=== PATIENT | male | born 1965 | race Caucasian/White ===

== ENCOUNTER 2019-01-06 19:47 | Emergency (ER) | payer MEDICARE ==
[~2019-01-06] VITALS: Ht 172.7 cm; Wt 95.7 kg
[~2019-01-06 19:47] MED LIST: ANDRODERM1 EACH TD; B-121000 MC2 PO; BUSPIRONE HCL10 MG PO; CETIRIZINE HCL10 MG PO; CODEINE SULFATE30 MG PO; DOXYCYCLINE HY100 M3 PO; KEFLEX500 MG PO; MIRTAZAPINE15 MG PO; MUCINEX600 MG PO; PREDNISONE20 MG PO; SERTRALINE HCL100 MG PO; SINGULAIR10 MG PO; THERAFLU MULTI1 EACH PO; VITAMIN D31000 UNI1 PO; WARFARIN SODIUM3 MG PO; WARFARIN SODIUM5 MG PO
--- NOTE | 2019-01-07 19:59 | EKG ---
[facility] [address] [facility] [place] [address] Signed Normal sinus rhythm Incomplete right bundle branch block Minimal voltage criteria for LVH, may be normal variant Borderline ECG No previous ECGs available Confirmed by JOE CRAVEN MD ([id number]) on 01/07/2019 7:59:43 PM Electronically Signed By: JOE CRAVEN MD 01/07/191958 PATIENT NAME: TYSON JIANG Electrocardiogram DATE OF : 67 PHYSICIAN: JOE CRAVEN MD REPORT #: [id number] REPORT IS CONFIDENTIAL AND NOT TO BE RELEASED WITHOUT AUTHORIZATION
== END 2019-01-06 21:24 | disposition home or self-care (01) ==
LOC: ED 19:47
DX: R07.89 Other chest pain (principal); J45.909 Unspecified asthma, uncomplicated; Z79.899 Other long term (current) drug therapy; Z79.01 Long term (current) use of anticoagulants
CPT/HCPCS: 71045; 80053; 84484; 85025; 85610; 85730; 93005; 93010; 99285-25

== ENCOUNTER 2019-02-14 01:44 | Emergency (ER) | payer MEDICARE ==
[~2019-02-14] VITALS: Ht 172.7 cm; Wt 96.6 kg
[2019-02-14] MEDS ORDERED: METOPROLOL TART25 MG PO (01:59)
[2019-02-14] MEDS ORDERED: XARELTO20 MG PO (01:59)
[2019-02-14] MEDS ORDERED: NITROGLYCERIN0.4 MG SL (01:59)
[2019-02-14] MEDS ORDERED: NORCO 5-325 TA1 EACH PO (05:55)
[2019-02-14] MEDS ORDERED: FLAGYL500 MG PO (05:55)
[2019-02-14] MEDS ORDERED: CIPRO500 MG PO (05:55)
== END 2019-02-14 06:16 | disposition home or self-care (01) ==
LOC: ED 01:44
DX: R10.11 Right upper quadrant pain (principal); J45.909 Unspecified asthma, uncomplicated; G56.20 Lesion of ulnar nerve, unspecified upper limb; F25.9 Schizoaffective disorder, unspecified; Z86.718 Personal history of other venous thrombosis and embolism; Z79.899 Other long term (current) drug therapy; Z79.01 Long term (current) use of anticoagulants
CPT/HCPCS: 74177; 76705; 80053; 81001; 83690; 85025; 85610; 85730; 99284-25; Q9967

== ENCOUNTER 2019-02-19 08:36 | Day surgery (SDC) | payer OTHER ==
[~2019-02-19] VITALS: Ht 172.7 cm; Wt 96.6 kg
[~2019-02-19 08:36] MED LIST changes: +CIPRO500 MG PO; +FLAGYL500 MG PO; +METOPROLOL TART25 MG PO; +NITROGLYCERIN0.4 MG SL; +NORCO 5-325 TA1 EACH PO; +XARELTO20 MG PO
[2019-02-19] MEDS ORDERED: XARELTO10 MG PO (08:58)
--- NOTE | 2019-02-19 12:07 | NUR ---
02/19/19 1207 Catia Mancilla 1159-PATIENT ARRIVED TO PACU ON 6L MASK SHALLOW BREATHES. NONAROUSABLE. 4 LAP SITES TO ABDOMEN FROM DIANNA AND UMBILICAL HERNIA INCISION. CDI. ICE APPLIED 1205-PATIENT OPENS EYES TO TACTILE STIMULI DOZES BACK TO SLEEP. IVF INFUSING.
--- NOTE | 2019-02-19 12:56 | NUR ---
ICED WATER, CRACKERS AND JELLO GIVEN. NO NON-VERBAL SIGNS OF PAIN NOTED. PATIENT KEEPS HIS EYES CLOSED WHILE TALKING TO ME. CALL LIGHT W/IN REACH. FAMILY NOTIFIED OF PATIENT'S RETURN TO HIS ROOM.
--- NOTE | 2019-02-19 13:03 | NUR ---
PATIENT EATS ALL JELLO AND CRACKERS AND ASKS FOR SOUP AND MORE CRACKERS. THIS IS GIVEN.
[2019-02-19] MEDS ORDERED: NORCO 5-325 TA1 EACH PO (13:21)
--- NOTE | 2019-02-19 13:55 | NUR ---
PATIENT RATES PAIN 8/10. NO NON VERBAL SIGNS OF PAIN NOTED. PATIENT EDUCATION COMPLETE WITH REGARD TO PAIN SCALE. PATIENT AFFIRMS 8/10 AND REPORTS 5/10 IS ACCEPTABLE TO HIM. PATIENT IS UP TO THE BATHROOM W/RN STANDBY. PATIENT STANDS AND AMBULATES TO THE BATHROOM WELL. FECAL INCONTINENCE ON BED LINEN IS NOTED. LINEN CHANGE COMPLETE. 2ND ATTEMPT MADE TO LOCATE PATIENT'S FAMILY. MORE ICED WATER IS GIVEN.
--- NOTE | 2019-02-19 14:18 | NUR ---
LE 1400: PATIENT AMBULATES BACK FROM BATHROOM, REPORTS SUCCESFUL VOID AND STATES "THE PRESSURE IS MUCH BETTER". PATIENT REQUESTS TO GO HOME. PATIENT GETTING DRESSED. PHONE CALL TO PATIENT'S SPOUSE'S CELL PHONE AND SHE REPORTS SHE WILL BE HERE IN 5 MINUTES. DC INSTRUCTIONS GIVEN IN PRESENCE OF SPOUSE AND BOTH SHE AND PATIENT VERBALIZE UNDERSTANDING. PATIENT TRANSFERS SELF TO WC AND THEN TO PERSONAL VEHICLE AND TOLERATES THOSE TRANSFERS WELL.
--- NOTE | 2019-02-20 06:26 | OR ---
[facility] [address], [place] [address] Signed DATE OF OPERATION: 02/19/2019 SURGEON: Wendy Vazquez MD DATE OF PROCEDURE: 02/19/2019 PREOPERATIVE DIAGNOSES: 1. Acute cholecystitis and cholelithiasis. 2. Incarcerated umbilical hernia. POSTOPERATIVE DIAGNOSES: 1. Chronic cholecystitis with cholelithiasis (three stones measuring 2 mm each). 2. Cholesterolosis. 3. Incarcerated umbilical hernia. 4. Fatty liver. PROCEDURES PERFORMED: 1. Laparoscopic cholecystectomy with intraoperative cholangiogram. 2. Primary umbilical herniorrhaphy without mesh. ESTIMATED BLOOD LOSS: None. FINDINGS: We found three yellow cholesterol stones in the gallbladder. Each was about 2 mm in diameter. He had moderate cholesterolosis. The intraoperative cholangiogram was unremarkable. He seemed to have some chronic changes of the gallbladder, but nothing acute. It is possible he passed a tiny stone causing his right upper quadrant abdominal pain in his ER visit. INDICATIONS: Conor is a 53-year-old gentleman, who had been to the emergency room on 02/14/2019. He was having significant right upper quadrant abdominal pain radiating through to his right shoulder blade. He was bloated, nauseated, and having trouble eating. He seemed to have some tenderness in the right upper quadrant. He also had a tender incarcerated umbilical hernia. His laboratory work was unremarkable. The right upper quadrant ultrasound was unremarkable. Specifically, no mention of any stones in the gallbladder. The common bile duct was unremarkable. As a result, the ER doctor ordered a CT scan of the abdomen and pelvis. Of course, they could see his incarcerated umbilical hernia Electronically Signed By: WENDY VAZQUEZ MD 02/20/19 0626 PATIENT NAME: CONOR JIANG OPERATIVE REPORT DATE OF : 67 REPORT #: [id number] PHYSICIAN: WENDY VAZQUEZ MD PCP: VAMSI MCDERMOTT MD REPORT IS CONFIDENTIAL AND NOT TO BE RELEASED WITHOUT AUTHORIZATION [facility] [address], [place] [address] Signed containing fat. The seemed to think there was a stone in the cystic duct on the CT scan. His bile ducts were unremarkable otherwise. He takes Xarelto for history of left lower extremity DVT. He would like to go home on Cipro, Flagyl and some hydrocodone. He stopped Xarelto and saw me in the office yesterday. He and his explained that he is having ongoing symptoms. I gave him a [employer] brochure on the gallbladder. We looked at that together in detail. I explained to Conor and his that the ultrasound is much more sensitive with respect to the stones than the CT scan. Nevertheless, because of his ongoing persistent symptoms, he wanted to proceed with surgery. I reviewed with him the location and function of the gallbladder. We discussed laparoscopic versus open cholecystectomy. He understands expected intraop and postop course. We did review the risks including, but not limited to bleeding, infection, scarring, change in contour of the skin, damage to bowel, damage to main bile duct, incisional hernias as well as inability to relieve his pain. In addition, he does have an incarcerated umbilical hernia on physical exam. It remains tender. He said he wonder why his umbilicus was so tender and poking out. I gave him a [employer] brochure on hernias and we looked at the section relevant to his umbilical hernia. In general, we would like to repair these with mesh. However, in this setting, we always close them primarily with permanent suture. The risk of recurrent hernia is a little higher around 3% up to 15%. Of course, if he had a recurrent umbilical hernia in the future, myself or any general surgeon would repair that with mesh. I also explained with respect to his umbilical hernia. There is risk including, but not limited to bleeding, infection, scarring, change in contour of the skin, damage to bowel as well as the recurrent hernia. He had expressed understanding and wished to proceed with the gallbladder surgery and repair of the umbilical hernia. PROCEDURE NOTE: I met with Conor and his once again in our preop area. Their friend was in the room with them. After answering his questions, he was taken into the operating room and placed in the supine position under general endotracheal tube anesthesia. He was given preoperative antibiotics along with subcutaneous heparin. SCDs were utilized. He was then prepped and draped in the usual sterile fashion. Even with pharmacologic paralysis, we could not reduce the herniated fat. We utilized a standard supraumbilical transverse incision and carried that down around the umbilicus bluntly and with the cautery. We the umbilical skin from the fascia with the help of the cautery. We were then able to reduce the fat back into the abdomen. He had a standard 10 mm fascial defect. We were able to easily place the Yessi trocar through this fascial defect. After this, the abdomen was insufflated and the remaining trocars were placed under direct visualization without difficulty. We could see that he has a fatty liver along with moderate amount of fat in his abdomen as many men do. The gallbladder was then grasped and elevated in the right upper quadrant. We could see the yellow spider web affect from the cholesterolosis. He had a lot of fat down around the neck of the gallbladder in the triangle of Calot. We did not specifically feel gallstone. We found that his cystic Electronically Signed By: WENDY VAZQUEZ MD 02/20/19 0626 PATIENT NAME: CONOR JIANG OPERATIVE REPORT DATE OF : 67 REPORT #: [id number] PHYSICIAN: WENDY VAZQUEZ MD PCP: VAMSI MCDERMOTT MD REPORT IS CONFIDENTIAL AND NOT TO BE RELEASED WITHOUT AUTHORIZATION [facility] [address], [place] [address] Signed artery ran anterior to the cystic duct and we placed 2 clips on that and divided that artery. We then placed our intraoperative cholangiocatheter into the cystic duct and again we saw no evidence of a stone. The intraoperative cholangiogram was then performed. Again, no evidence of stone in the cystic duct or the common bile duct. The contrast flowed quite readily into the duodenum. After this, the cystic duct stump was secured with a PDS Endoloop and 2 clips were placed across the cystic duct stump to uche its location. The gallbladder was then carefully removed from the gallbladder fossa with the help of the cautery and placed into an EndoCatch bag. We had one small artery posteriorly somewhat laterally on the edge of the liver bed and it was easily cauterized. The wound was irrigated and suctioned out until clear. We used our laparoscopic suturing device to pass 0 Vicryl suture on either side of the fascia of the subxiphoid trocar site. This was tied down to close this fascia primarily. After this, all the gas was allowed to escape and all the trocars were removed. The gallbladder was handed off to our circulating nurse and was opened on the back table. He had significant cholesterolosis and three small yellow cholesterol stones probably 2 mm in diameter. These clearly would not be evident on the CT scan. We then closed the umbilical fascial defect transversely with a running #1 Prolene suture. The umbilical skin was held down the midline fascia with an interrupted 2-0 PDS suture. Local anesthetic had been copiously injected in the wound along with the other trocar sites. Each trocar site was irrigated and suctioned out until clear. The skin and dermis of each trocar site were then closed with interrupted 3-0 subcuticular Monocryl sutures. Dry gauze and tape were then applied. Conor was then awakened from his anesthesia, extubated in the OR, and taken to recovery room in stable condition. Wendy Vazquez MD ALB/MODL /[id number] cc: Vamsi Mcdermott MD Copies: VAMSI MCDERMOTT MD ~ Electronically Signed By: WENDY VAZQUEZ MD 02/20/19 0626 PATIENT NAME: CONOR JIANG OPERATIVE REPORT DATE OF : 67 REPORT #: [id number] PHYSICIAN: WENDY VAZQUEZ MD PCP: VAMSI MCDERMOTT MD REPORT IS CONFIDENTIAL AND NOT TO BE RELEASED WITHOUT AUTHORIZATION
== END 2019-02-19 14:10 | disposition home or self-care (01) ==
LOC: DS 08:36
PROVIDERS: Colon & Rectal Surgery
PROC: 0FT44ZZ Resection of Gallbladder, Percutaneous Endoscopic Approach (ICD-10-PCS; principal; 2019-02-19 11:00)
PROC: BF13YZZ Fluoroscopy of Gallbladder and Bile Ducts using Other Contrast (ICD-10-PCS; 2019-02-19 11:00)
DX: K81.1 Chronic cholecystitis (principal); K42.0 Umbilical hernia with obstruction, without gangrene; K76.0 Fatty (change of) liver, not elsewhere classified; M19.90 Unspecified osteoarthritis, unspecified site; I10 Essential (primary) hypertension; I82.409 Acute embolism and thrombosis of unspecified deep veins of unspecified lower extremity; F17.220 Nicotine dependence, chewing tobacco, uncomplicated; Z79.2 Long term (current) use of antibiotics; Z91.040 Latex allergy status; Z79.899 Other long term (current) drug therapy
CPT/HCPCS: 00790; 74300; J0131; J0330; J0690; J1100; J1644; J1885; J2405; J2704; J3010; J7120; Q9967

== ENCOUNTER 2019-02-21 20:56 | Emergency (ER) | payer OTHER ==
[~2019-02-21] VITALS: Ht 172.7 cm; Wt 96.6 kg
[~2019-02-21 20:56] MED LIST changes: +XARELTO10 MG PO
--- OUTSIDE RECORDS SUMMARY | 2019-02-21 20:58 | XMS ---
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 Zoila has no Care Guidelines for this patient. [place] VISIT COUNT (12 MO.) 4 [facility] TOTAL 4 NOTE: Visits indicate total known visits. 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 - Lesion of ulnar nerve, unspecified upper limb - Personal history of other venous thrombosis and embolism 01/06/2019 19:47 [facility] TYPE: Emergency COMPLAINT: - CHEST PAIN DIAGNOSES: - Chest pain, unspecified - Other chest pain - 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
[2019-02-21] MEDS ORDERED: CEPHALEXIN500 MG PO (22:41)
== END 2019-02-21 22:52 | disposition home or self-care (01) ==
LOC: ED 20:56
DX: I80.01 Phlebitis and thrombophlebitis of superficial vessels of right lower extremity (principal); J45.909 Unspecified asthma, uncomplicated; G62.9 Polyneuropathy, unspecified; F25.9 Schizoaffective disorder, unspecified; Z79.899 Other long term (current) drug therapy; Z90.49 Acquired absence of other specified parts of digestive tract
CPT/HCPCS: 36415; 80053; 85025; 93971; 99284-25

== ENCOUNTER 2020-05-10 10:50 | Observation (INO) | payer MEDICARE ==
[~2020-05-10] VITALS: Ht 172.7 cm; Wt 97.1 kg
[~2020-05-10 10:50] MED LIST changes: +ACYCLOVIR400 MG PO; +CEPHALEXIN500 MG PO; +CIPRO HC OTIC S10 ML AD; +REVLIMID15 MG PO
--- OUTSIDE RECORDS SUMMARY | 2020-05-10 10:54 | XMS ---
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 Care History Medical/Surgical 02/24/2019 [facility] - Patient is currently established with [facility]. If patient is seen in the ED during business hours. Please contact CHWs at [facility]. Care Recommendation: This patient has had 5 or more Emergency Department visits in the last 12 months.\T\nbsp; Patient requires education on the scope and purpose of the ED as an acute care provider not a Primary Care Provider and should not be utilized for chronic conditions.\T\nbsp; These are guidelines and the provider should exercise clinical judgment when providing care. E.D. VISIT COUNT (12 MO.) 1 [facility] TOTAL 1 NOTE: Visits indicate total known visits. ED/UCC VISIT TRACKING (12 MO.) 05/10/2020 10:[address] [facility] [place] TYPE: Emergency COMPLAINT: - STROKE SYMPTOMS INPATIENT VISIT TRACKING (12 MO.) No inpatient visits to display in this time frame [email or web address]
--- NOTE | 2020-05-10 14:30 | NUR ---
PT ARRIVED TO FLOOR VIA STRETCHER. PT IS ALERT AND ORIENTED. INDEPENDENT TO TRANSFER TO BED. TELE 4 PLACED. VITALS TAKEN. IMAGING IN TO DO ECHO. WATER PROVIDED.
--- NOTE | 2020-05-10 15:21 | NUR ---
PHYSICAL THERAPY IN DOING ASSESSMENT.
--- NOTE | 2020-05-10 16:00 | NUR ---
NIH SCORE OF 2. PT WITH LEFT FACIAL DROOP, DISORIENTED TO DATE, SITUATION. SPEACH NORMAL. FOOD ORDERED. AT BEDSIDE. CALL LIGHT IN REACH.
--- NOTE | 2020-05-10 17:00 | NUR ---
PT SITTING IN BED. TELE 4 IN PALCE. HR 70 SR. PT DENIES PAIN. NO SYMPTOM CHANGES. CALL LIGHT IN REACH.
--- NOTE | 2020-05-10 18:01 | NUR ---
PT LYING IN BED. DENIES NEEDS. NO SYPMTOM CHANGES. CALL LIGHT IN REACH HR 64 SR.
--- NOTE | 2020-05-10 18:17 | NUR ---
MED REC COMPLETE
--- NOTE | 2020-05-10 18:24 | NUR ---
PATIENT RESTING IN BED. IN ROOM. VITAL SIGNS AND I&O DONE. CALL LIGHT WITHIN REACH. NO OTHER NEEDS AT THIS TIME
--- NOTE | 2020-05-10 19:20 | NUR ---
REPORT RECEIVED FROM DAY SHIFT RN. PT LYING IN BED ALERT. NO SLURRED OR GARBLED SPEECH NOTED. DENIES NEEDS. WHITE BOARD UPDATED. CALL LIGHT IN REACH.
--- NOTE | 2020-05-10 19:25 | NUR ---
PATIENT'S CAME TO NURSE'S STATION ASKED FOR ICE WATER AND WARM BLANKET. THIS CHAIN MENDER WENT AND PROVIDED THE REQUEST.
--- NOTE | 2020-05-10 20:40 | NUR ---
EVENING ASSESSMENT COMPLETE. SCHEDULED MEDS ADMINISTERED, NO SWALLOWING ISSUES NOTED. PT CONTINUES HAVING TROUBLE EXPRESSING HIMSELF. NEURO CHECK COMPLETE (SEE ASSESSMENT). PT DENIES PAIN OR HEADACHE. TELE#[address], SR. HR 60'S. IN ROOM TO STAY. LINENS AND PILLOW PROVIDED. PT DENIES QUESTIONS OR CONCERNS. CALL LIGHT IN REACH.
--- NOTE | 2020-05-10 23:33 | NUR ---
SPRITE PROVIDED PER REQUEST. URINAL EMPTIED OF 150 ML YELLOW URINE. PT DENIES FURTHER NEEDS.
--- NOTE | 2020-05-11 02:03 | NUR ---
VS AND I&O COMPLETE. NEURO CHECK COMPLETE (SEE ASSESSMENT), SYMPTOMS UNCHANGED. PT REPORTS HE IS RESTING COMFORTABLY. TELE #4, HR 70'S. IN ROOM. NO NEEDS. CALL LIGHT IN REACH.
--- NOTE | 2020-05-11 06:18 | NUR ---
NEURO CHECK COMPLETE. PT ABLE TO RESPOND MORE QUICKLY TO QUESTIONS THIS AM. ABLE TO READ BREAKFAST MENU AND ORDER. EXPRESSIVE APHASIA REMAINS BUT IMPROVED. TELE #4 SR. HR 60'S. PT DENIES PAIN. UP IN ROOM INDEPENDENTLY. GAIT STEADY. NO NEEDS. CALL LIGHT IN REACH.
--- NOTE | 2020-05-11 07:36 | NUR ---
REPORT RECIEVED. PT IN BED AWAKE. CALL LIGHT IN REACH. DENIES NEEDS.
--- NOTE | 2020-05-11 09:19 | NUR ---
ASSESSMNET COMPLETED. NEURO CHECK DONE. PT WITH EXPRESSIVE APHASIA AND LEFT FACIAL DROOP. ATE 100% OF BREAKFAST. DENEIS PAIN. OUT TO WORK WITH PHYSICAL THERAPY.
--- NOTE | 2020-05-11 10:03 | NUR ---
PATIENT IN BED WATCHING TV, AT BEDSIDE. FRESH WATER GIVEN. PATIENT IND, DID AM AND ORAL CARE. PATIENT REFUSED SHOWER. CALL LIGHT IN REACH. NO FURTHER NEEDS AT THIS TIME.
--- NOTE | 2020-05-11 11:52 | NUR ---
PT WITH DECREASED URIN OUTPUT. DR DAVISON NOTIFIED. VERBAL ORDER FOR 1L LR BOLUS TO INFUSE OVER 1 HOUR. LR HUNG. PT SITTING AT SIDE OF BED WITH LUNCH.
--- NOTE | 2020-05-11 14:35 | NUR ---
PATIENT IN BED WATCHING TV. AT BEDSIDE. CALL LIGHT IN REACH. NO FURTHER NEEDS AT THIS TIME.
--- NOTE | 2020-05-11 16:50 | NUR ---
ROUNDED WITH DR DAVISON PLAN OF CARE DISCUSSED.
[2020-05-11] MEDS ORDERED: LIPITOR40 MG PO (16:56)
--- NOTE | 2020-05-12 16:15 | EKG ---
[facility] [address] [facility] [place] [address] Signed Normal sinus rhythm Incomplete right bundle branch block Voltage criteria for left ventricular hypertrophy Abnormal ECG When compared with ECG of 06-JAN-2019 19:51, No significant change was found Confirmed by ELIANA DAVISON DO ([id number]) on 05/12/2020 4:15:23 PM Electronically Signed By: ELIANA DAVISON DO 05/12/20 1615 PATIENT NAME: TYSON JIANG NORBERTO Electrocardiogram DATE OF : 67 PHYSICIAN: ELIANA DAVISON DO REPORT #: [id number] REPORT IS CONFIDENTIAL AND NOT TO BE RELEASED WITHOUT AUTHORIZATION
== END 2020-05-11 17:20 | disposition home or self-care (01) ==
LOC: ED 10:50 → MS 10:51
PROVIDERS: ADMIT Internal Medicine
DX: I63.81 Other cerebral infarction due to occlusion or stenosis of small artery (principal); R47.01 Aphasia; C90.00 Multiple myeloma not having achieved remission; F41.8 Other specified anxiety disorders; Z86.718 Personal history of other venous thrombosis and embolism; Z79.899 Other long term (current) drug therapy
CPT/HCPCS: 70450; 70496; 70498; 70551; 71045; 80053; 80061; 83036; 84484; 85025; 85610; 85730; 92523; 93005; 93010; 93306; 96360; 97112; 97116; 97162; 97165; 99285-25; C9803; G0378; J7121; Q3014; Q9967; U0002

== ENCOUNTER 2020-08-26 10:12 | Day surgery (SDC) | payer OTHER ==
[~2020-08-26] VITALS: Ht 172.7 cm; Wt 95.2 kg
[~2020-08-26 10:12] MED LIST changes: +LIPITOR40 MG PO
--- NOTE | 2020-08-26 12:28 | NUR ---
08/26/20 Konstantin8 Elyse Reyes 1223- PT ARRIVES TO PACU AROUSABLE TO VOICE. PT FALLS INSTANTLY BACK TO SLEEP. RESP EVEN AND UNLABORED. OXYGEN SAT HIGH 90'S ON 3L VIA NC.
--- NOTE | 2020-09-01 12:29 | PATH ---
[facility] [address] [place], [place] [address] Signed THIS IS AN ADDENDUM REPORT SPECIMEN(S): A BONE MARROW - CORE SPECIMEN(S): B BONE MARROW - ASPIRATION SPECIMEN(S): C COMP AND PLASMA CELL FLOW, BM EDTA CLINICAL HISTORY: 55-year-old male with IgG [place] myeloma, s/p HDCT, auto MBT. Evaluate for MRD. C90.00 (multiple myeloma not having achieved remission) DIAGNOSIS SUMMARY: A. Peripheral blood - Mild pancytopenia. B. Bone marrow, left side, aspirate smear, aspirate cell block, and trephine biopsy: - Minute population of kappa monotypic plasma cells is detected by flow cytometry analysis (0.04% kappa monotypic plasma cells). - Normocellular marrow with active trilineage hematopoiesis. - Negative for morphologic features of myelodysplasia. - See Diagnostic Comment. DIAGNOSTIC COMMENT: There is minimal residual plasma cell myeloma as detected solely by sensitive multiparameter flow cytometry analysis (0.04% kappa monotypic plasma cells detected). By immunohistochemistry, less than 1% plasma cells is observed. Please correlate with clinical findings for full assessment. Karyotype analysis, myeloma and MDS panel FISH analyses, and plasma cell enriched PCR analysis for B-cell gene arrangement for minimal residual disease monitoring are being performed and the results will be reported by addendum. TTP:smn:C2NR PERIPHERAL BLOOD: HEMOGRAM (08/26/2020): WBC 3.0 K/uL, RBC 3.23 M/uL, HGB 10.6 g/dL, HCT 30.5%, MCV 94.5 fL, RDW 16.9%, PLT 100 K/uL. DIFFERENTIAL (automated): 69.7% neutrophils, 17.4% lymphocytes, 6.6% monocytes, 5.6% eosinophils, and 0.7% basophils. The red cells are mildly decreased in number and are normochromic and normocytic. Anisocytosis and poikilocytosis are increased with ovalocytes and teardrop cells. Polychromasia is absent. Red PATIENT NAME: TYSON HOLLEY PATHOLOGY DATE OF : 67 REPORT #: [id number] PHYSICIAN: RAJWINDER MURPHY PCP: VAMSI MCDERMOTT MD REPORT IS CONFIDENTIAL AND NOT TO BE RELEASED WITHOUT AUTHORIZATION [facility] [address] [place], [place] [address] Signed blood cell rouleaux are not prominent. Leukocytes are mildly decreased in number and consist predominantly of mature neutrophils with normal morphology. Overt dysplastic changes are not seen. Circulating blasts and immature granulocytes are absent. There is no monocytosis, basophilia, or eosinophilia. Lymphocytes are reduced and show normal morphology. Platelets are mildly decreased in number and show normal morphology. BONE MARROW: BONE MARROW ASPIRATE SMEARS: The bone marrow aspirate smears have adequate cellular particles with normal proportions of myeloid and erythroid forms, which mature in a complete and house player fashion without overtly dysplastic features. Blasts are not increased. No atypical lymphoid population is seen. Plasma cells are rare and show normal morphology. Megakaryocytes are normal in number and appearance. A 200-cell differential count yields: 8% myelocytes, 23% metamyelocytes, 23% neutrophils, 6% lymphocytes, and 40% erythroid precursors. BONE MARROW CLOT (ASPIRATE CELL BLOCK) AND TREPHINE BIOPSY: A 1.4 cm decalcified trephine biopsy is available for review, showing a normocellular marrow for age (40-50% cellular). Granulopoietic and erythroid maturations are present with an M:E ratio of 1:1. No increase in plasma cells is appreciated. Megakaryocytes are normal in number and appearance. No aggregates of immature cells, lymphoid nodules, granulomas, or other focal lesions are identified. Trabecular bone is normal. The clot section contains many cellular marrow particles with similar findings. SPECIAL STAINS: - Iron (aspirate smear and clot section): Adequate stainable iron store. Negative for ringed sideroblasts. Appropriate positive control is reviewed. IMMUNOHISTOCHEMISTRY, BLOCKS A1 AND B1: - CD138: Rare scattered plasma cells are positive (less than 1%). IN SITU HYBRIDIZATION, BLOCKS A1 AND B1: - [place]: Rare scattered plasma cells are positive. - Lambda: No positive plasma cells are seen. No definite monotypic plasma cell population is discernible by in situ hybridization. TTP:smn FLOW CYTOMETRY: Bone marrow aspirate, flow cytometry: PATIENT NAME: TYSON HOLLEY PATHOLOGY DATE OF : 67 REPORT #: [id number] PHYSICIAN: RAJWINDER PATHOLOGY PCP: VAMSI MCDERMOTT MD REPORT IS CONFIDENTIAL AND NOT TO BE RELEASED WITHOUT AUTHORIZATION [address] [address] Signed - [place] monotypic plasma cells are detected. See Comment. COMMENT: About 0.04% of total events are kappa monotypic plasma cells with aberrant CD56 expression. A similar amount of polytypic plasma cells is also detected. Correlation with clinical and histologic findings is needed for further characterization of this patient's plasma cell dyscrasia. Flow cytometry analysis often underestimates the amount of plasma cells. FLOW CYTOMETRY ANALYSIS: FLOW DIFFERENTIAL (% Total CD45 vs. SSC gating): Myeloid 87%; Lymphoid 2%; Monocyte 2%; Dim CD45/Blast: 1.2%. Cell Count: 4.8 x 10*3/uL. POPULATION ANALYSIS: BLASTS: Analysis of the dim CD45 gate demonstrates less than 1% myeloblasts by CD34/CD117. 3.7% of total events are hematogones. LYMPHOID CELLS: The lymphocyte gate comprises 2% of total events and includes 83% T-cells with a CD4:CD8 ratio of 0.5:1 and normal higgins T-cell antigen expression. B-cells are essentially absent. The remainders are NK-cells. MYELOID CELLS: The myeloid population comprises 87% of the total events. No aberrant immunophenotypic expression is detected. MONOCYTES: The monocyte population comprises 2% of the total events. Monocytes are not increased. Some increased expression of CD15 and CD56 are observed. PLASMA CELLS: A history of myeloma is noted. For this reason, select additional antibodies are run to further characterize the plasma cells. Two distinct plasma cell populations are detected. The first, 1) is comprised of ckappa-restricted plasma cells (0.04% of total events, n=32) expressing CD45 DIM-NEG, CD38 BR, CD138 BR, CD56 MOD-BR, and cKAPPA MOD while negative for CD19 and CD20. The second, 2) is comprised of polyclonal plasma cells expressing CD45 DIM-NEG, CD38 BR, CD138 MOD-BR, and CD19 DIM-MOD while negative for CD20 and CD56 with a ckappa:clambda ratio of 1.2. ANTIBODIES USED: Initial Antibodies Used: KAPPA, LAMBDA, CD20, CD10, CD19, CD23, CD38, FMC7, CD16, CD56, CD8, CD5, CD2, CD4, CD7, CD3, CD14, CD33, CD13, HLADR, CD34, CD117, CD15, CD45 Additional Antibodies (necessary for further plasma cell analysis): ckappa, clambda, CD138. Total Antibodies Used: 27. JNB FINAL DIAGNOSIS PERFORMED BY: Sanjuanita Garcia MD, Pathologist Aug 27 2020 5:01PM PATIENT NAME: TYSON HOLLEY PATHOLOGY DATE OF : 67 REPORT #: [id number] PHYSICIAN: RAJWINDER MURPHY PCP: VAMSI MCDERMOTT MD REPORT IS CONFIDENTIAL AND NOT TO BE RELEASED WITHOUT AUTHORIZATION [facility] [address] [place], [place] [address] Signed CYTOGENETICS: Pending, to be reported by addendum. FISH ANALYSIS: Pending, to be reported by addendum. MOLECULAR / PCR: Pending, to be reported by addendum. GROSS DESCRIPTION: Two specimens are received in two containers, labeled "Holley". A. The specimen, labeled "Kishan, core," is received in formalin and consists of a single red-brown bony core up to 1.2 cm. The specimen is entirely submitted in block (A1) following decalcification in Immunocal. B. The specimen, labeled "Kishan, clot," is received in formalin and consists of a 1.3 x 1.2 x 0.4 cm aggregate of red-brown, clotted material. The specimen is entirely submitted in block (B1). JW (under the direct supervision of a pathologist) The Gross Description was prepared using a voice recognition system. The report was reviewed for accuracy; however, sound-alike word errors, addition and/or deletions may occur. If there is any question about this report, please contact Client Services. ADDITIONAL NOTES: Immunohistochemical and/or in situ hybridization studies were performed on this case with the appropriate positive controls that react as expected. This test was developed and its performance characteristics determined by [facility]. It has not been cleared or approved by the U.S. Food and Drug Administration. The FDA has determined that such clearance or approval is not necessary. This test is used for clinical purposes. It should not be regarded as investigational or for research. [facility] is certified under the Clinical Laboratory Improvement Amendments of 1988 (CLIA) as qualified to perform high complexity clinical laboratory testing. In this case, certain antibodies were performed by both immunohistochemistry and flow cytometry analysis because flow cytometry analysis did not fully explain all the light microscopic findings. Immunohistochemistry aided in the analysis. Both methods are deemed medically necessary in this case. PATIENT NAME: TYSON HOLLEY PATHOLOGY DATE OF : 67 REPORT #: [id number] PHYSICIAN: RAJWINDER MURPHY PCP: VAMSI MCDERMOTT MD REPORT IS CONFIDENTIAL AND NOT TO BE RELEASED WITHOUT AUTHORIZATION [address] [address] Signed This test was developed and its performance characteristics determined by [facility]. It has not been cleared or approved by the US Food and Drug Administration. The FDA does not require this test to go through premarket FDA review. This test is used for clinical purposes. It should not be regarded as investigational or for research. This laboratory is certified under the Clinical Laboratory Improvement Amendments (CLIA) as qualified to perform high complexity clinical laboratory testing. PERFORMING LABORATORY: The technical component was performed by [facility], [address] [place] [address] (Clin Application Specialist: Anthony Rao D.O.; CLIA#: [id number]). Professional interpretation was performed by [facility], [facility], [address] [place] [address] (Clin Application Specialist: Hayes Garcia M.D.; CLIA#: [id number]). The technical component was performed by [facility], [address] [place] [address] (Clin Application Specialist: Anthony Rao D.O.; CLIA#: [id number]). Professional interpretation was performed by [facility], [facility], [address] [place] [address] (Clin Application Specialist: Hayes Garcia M.D.; CLIA#: [id number]). IMAGES: A: [id number] A: [id number] SPECIMEN SOURCE: A. FISH Analysis, MDS FISH, BM EDTA CLINICAL HISTORY: 55-year-old male with IgG [place] myeloma, s/p HDCT, auto MBT. Evaluate for MRD. C90.00 (multiple myeloma not having achieved remission) FISH (fluorescence in situ hybridization) RESULT: Not Detected INTERPRETATION: 5q deletion/monosomy 5: Not detected. 7q deletion/monosomy 7: Not detected. Trisomy 8: Not detected. 20q deletion: Not detected. KMT2A (MLL) rearrangement: Not detected. PATIENT NAME: TYSON HOLLEY PATHOLOGY DATE OF : 67 REPORT #: [id number] PHYSICIAN: RAJWINDER PATHOLOGY PCP: VAMSI MCDERMOTT MD REPORT IS CONFIDENTIAL AND NOT TO BE RELEASED WITHOUT AUTHORIZATION [facility] [address] [place], [place] [address], [place] [address] Signed Fluorescence in situ hybridization (FISH) analysis was performed using a specific set of probes for myelodysplastic syndrome. Counts for all probe signals were within the normal reference range. This finding represents a NORMAL result. FISH should be interpreted within the context of a full cytogenetic analysis and hematologic evaluation. ISCN: Probe Set Detail: EGR1/H6B109: nuc sowmya 5p15.31(B7Y029x4), 5q31(EGR1x2)[200] H7Q329/CEP7: nuc sowmya 7q31(O3Q076j8),7q11.2q11.21(CEP7x2)[200] CEP8: nuc sowmya 8q11.1q11.21(CEP8x2)[200] D33B869: nuc sowmya 20q12(E20L049r3)[200] KMT2A (MLL): nuc sowmya 11q23(5'KMT2A,3'KMT2A)x2(5'KMT2A con 3'GTQ1Of6)[200] References: Melissa Douglas (2013) Hematology Am Soc Hematol Educ Program 2013:504-10. PMID [id number] Patricia Carmona and Farhan Vargas (2011) Hematology 16(3):131-8. PMID: 90346239 FISH Analysis Summary: Nuclei Scored: 200 Scoring Method: Manual; CPT Code 13419 Number of Probe units: 4 Multiplex Cells analyzed: Interphase Probe sets: Chrom 8: PARISH 8, Chrom 20: F77T556, Chrom 5: EGR1, Chrom 5: G5V591, Chrom 7: CEN7, Chrom 7: M2H4877, Chrom 11: KMT2A (MLL) 3', Chrom 11: KMT2A (MLL) 5 ADDITIONAL NOTES: This test was developed and its performance characteristics determined by [facility], [place]. It has not been cleared or approved by the US Food and Drug Administration. The [employer] DNA probe vendor for this study was [employer]. PERFORMING LABORATORY: The technical component of the FISH testing was performed by [facility], [address] [place] [address] [place] [address] (Clin Application Specialist: Anthony Rao D.O.; CLIA#: [id number]). Professional interpretation was performed by [facility] [employer] [facility], [address] [place] [address] [place] [address] (Clin Application Specialist: Anthony Rao D.O.; CLIA#: [id number]). IMAGES: FINAL DIAGNOSIS PERFORMED BY: Sanjuanita Garcia MD, Pathologist Aug 31 2020 6:02PM PATIENT NAME: TYSON HOLLEY PATHOLOGY DATE OF : 67 REPORT #: [id number] PHYSICIAN: RAJWINDER PATHOLOGY PCP: VAMSI MCDERMOTT MD REPORT IS CONFIDENTIAL AND NOT TO BE RELEASED WITHOUT AUTHORIZATION [address] [address] Signed Bone marrow aspirate, FISH (fluorescence in situ hybridization) Result: Normal Plasma Cell Neoplasm panel Interpretation: - There is no evidence of an abnormal cell clone containing any of the aberrations associated with plasma cell neoplasia in the CD138 enriched cell fraction of this specimen at the sensitivity level of this analysis. - Clinical and hematopathology correlation is required. CD138+ plasma cells were isolated by magnetic-activated cell sorting using anti-CD138 immunobeads and a magnetic-activated cell sorter (IntraStage) separation system. Interphase FISH (fluorescence in situ hybridization) was performed to assess this specimen for the presence of cytogenetic aberrations in the non-dividing cell population. Hybridization was performed using the CDKN2C/CKS1B (1p32.3, 1q21), I83G901 (13q14.2), and TP53/D17Z1 (17p13) gene probes to look for deletion/loss of these regions or chromosomes. The D3Z1 and D15Z4 centromere probes were used to determine gains of chromosomes 3 and 15. The 13q34 probe was run as the control for C53V781 and to distinguish between deletion 13q and monosomy 13. FISH was also performed using the IGH/CCND1 and the IGH/FGFR3 probe sets, to look for t(11;14) and t(4;14) rearrangements, respectively, or alternate IGH gene rearrangements. A total of 200 CD138+ interphase cells were analyzed for each probe; the analyses fell within normal limits for this specimen type. 08/31/20 14:25 Please note, that aberrations in different cell populations (including CD138- plasma cell populations) cannot be ruled-out with this analysis. FISH Analysis Summary: Number of Cells Analyzed: 200; Cells Analyzed: Interphase Probes Utilized: CDKN2C,CKS1B, D3Z1+D15Z4, FGFR3/IGH, CCND1/IGH, L53W258,13q34, TP53-P Source and Lot Number: [employer], [id number], [id number], [id number], [id number], [id number], [id number] Control Probe Utilized: database The technical and professional components of the FISH study were performed at [facility] ([place], [place], case #[id number]). Detailed report is kept on file. Bone marrow aspirate, B-Cell Gene Rearrangement PCR Analysis (IGH): NEGATIVE Analysis/Conclusions: CD138+ plasma cells were isolated by magnetic-activated cell sorting using anti-CD138 immunobeads and a magnetic-activated cell sorter (IntraStage). Polyclonal PATIENT NAME: TYSON HOLLEY PATHOLOGY DATE OF : 67 REPORT #: [id number] PHYSICIAN: RAJWINDER PATHOLOGY PCP: VAMSI MCDERMOTT MD REPORT IS CONFIDENTIAL AND NOT TO BE RELEASED WITHOUT AUTHORIZATION [facility] [address] [place], [place] [address] Signed amplicon distribution was detected for all three immunoglobulin heavy-chain (IgH) framework regions (FR). - These results indicate the absence of a monoclonal plasma cell population by IGH gene rearrangement. - Clinical and histologic correlation would be required for the diagnosis. The Immunoglobulin Heavy Chain (IgH) gene rearrangement analysis detects approximately 85 90 % of B-cell malignancies, however, false-negative results can be caused by improper annealing of the PCR primers due to somatic hypermutations in rearranged Ig genes of germinal center and post germinal center B-cell malignancies. - Please note Clonality in different cell populations (including CD138- plasma cell populations) cannot be ruled-out with this analysis Method: Each B-cell has a single productive immunoglobulin gene rearrangement respectively that is unique in both length and sequence. Polymerase chain reaction (PCR) assays with specific primers for the joining region and all three of the conserved framework regions (FR1, FR2 and FR3) were used to amplify immunoglobulin heavy chain (IGH) gene rearrangements according to the BIOMED-2 Concerted Action protocol [van Dongen et al. Leukemia, 17:7210-6762, 2003]. DNA from a normal or polyclonal B cell population produces a villafana-shaped curve of amplicon products (Gaussian distribution). Clonal rearrangements are identified as prominent, single-sized products by capillary electrophoresis and GeneScanning. Although molecular testing is highly accurate, rarely false-positive and false-negative diagnostic errors may occur. DW/MRL/MELISSA The technical and professional components of the molecular analysis were performed at [facility]. ([place], [place], case #[id number]). Detailed report is kept on file. Bone marrow aspirate, B-Cell Gene Rearrangement PCR Analysis (IGK): NEGATIVE Analysis/Conclusions: CD138+ plasma cells were isolated by magnetic-activated cell sorting using anti-CD138 immunobeads and a magnetic-activated cell sorter (IntraStage) separation system. Polyclonal amplicon distribution has been detected for the immunoglobulin kappa light chain locus. - These results do not reveal the presence of a monoclonal plasma cell population. - The presence of a small clonal B-cell population below the level of detection for this analysis cannot be ruled out (approximately 1-10% dependent PATIENT NAME: TYSON HOLLEY PATHOLOGY DATE OF : 67 REPORT #: [id number] PHYSICIAN: RAJWINDER MURPHY PCP: VAMSI MCDERMOTT MD REPORT IS CONFIDENTIAL AND NOT TO BE RELEASED WITHOUT AUTHORIZATION [address] [address] Signed upon the polyclonal background of the individual gene rearrangement). - In addition, false-negative results caused by improper annealing of the PCR primers cannot be completely ruled out. - Clinical and histological correlation required for definitive diagnosis. - Please note: Clonality in different cell populations (including CD138- plasma cell populations) cannot be ruled-out with this analysis Method: Each B-cell has a single productive immunoglobulin gene rearrangement respectively that is unique in both length and sequence. Polymerase chain reaction (PCR) was used to amplify immunoglobulin light chain kappa (IgK) gene rearrangements according to the BIOMED-2 Concerted Action protocol [van Dongen et al. Leukemia, 17:0858-7954, 2003]. DNA from a normal or polyclonal B cell population produces a villafana-shaped curve of amplicon products (Gaussian distribution). Clonal rearrangements are identified as prominent, single-sized products by capillary electrophoresis and GeneScanning. Although molecular testing is highly accurate, rarely false-positive and false-negative diagnostic errors may occur.. BALWINDER/MRL/MELISSA The technical and professional components of the molecular analysis were performed at [facility] ([place], [place], case #[id number]). Detailed report is kept on file. REASON FOR ADDENDUM: To add results of additional testing. Diagnostician: Sanjuanita Garcia MD Pathologist Electronically Signed 09/01/2020 Copies: ~ PATIENT NAME: TYSON HOLLEY PATHOLOGY DATE OF : 67 REPORT #: [id number] PHYSICIAN: RAJWINDER PATHOLOGY PCP: VAMSI MCDERMOTT MD REPORT IS CONFIDENTIAL AND NOT TO BE RELEASED WITHOUT AUTHORIZATION
== END 2020-08-26 13:15 | disposition home or self-care (01) ==
LOC: DS 10:12 → OPS 10:12
PROVIDERS: ATTEND Specialist
PROC: 079T3ZX Drainage of Bone Marrow, Percutaneous Approach, Diagnostic (ICD-10-PCS; 2020-08-26)
PROC: 07DR3ZX Extraction of Iliac Bone Marrow, Percutaneous Approach, Diagnostic (ICD-10-PCS; principal; 2020-08-26 12:00)
DX: C90.00 Multiple myeloma not having achieved remission (principal); I63.511 Cerebral infarction due to unspecified occlusion or stenosis of right middle cerebral artery; D61.818 Other pancytopenia; J45.909 Unspecified asthma, uncomplicated; F41.9 Anxiety disorder, unspecified; E66.9 Obesity, unspecified; Z79.899 Other long term (current) drug therapy; Z79.01 Long term (current) use of anticoagulants; Z86.711 Personal history of pulmonary embolism
CPT/HCPCS: 36415; 80053; 80500; 82784; 83615; 83883; 84155; 84165; 85025; 99153; G0500; J2250; J3010

== ENCOUNTER 2022-03-06 04:05 | Emergency (ER) | payer MEDICARE ==
[~2022-03-06] VITALS: Ht 172.7 cm; Wt 93.0 kg
[2022-03-06] MEDS ORDERED: LEVOFLOXACIN750 MG PO (05:25)
== END 2022-03-06 05:40 | disposition home or self-care (01) ==
LOC: ED 04:05
DX: J18.9 Pneumonia, unspecified organism (principal); Z92.21 Personal history of antineoplastic chemotherapy; Z86.718 Personal history of other venous thrombosis and embolism; J45.909 Unspecified asthma, uncomplicated; M19.90 Unspecified osteoarthritis, unspecified site; G47.00 Insomnia, unspecified; Z79.899 Other long term (current) drug therapy; Z79.01 Long term (current) use of anticoagulants; Z20.822 Contact with and (suspected) exposure to COVID-19
CPT/HCPCS: 36415; 71046; 85025; 85060; 99283-25; U0003

== ENCOUNTER 2022-05-07 10:22 | Emergency (ER) | payer MEDICARE ==
[~2022-05-07] VITALS: Ht 172.7 cm; Wt 94.3 kg
[~2022-05-07 10:22] MED LIST changes: +ALLERCLEAR10 MG PO; +BENADRYL ALLERG25 MG PO; +DIPHENOXYLATE-1 EACH PO; +FOLIC ACID1 MG PO; +K-TAB ER20 MEQ PO; +LEVOFLOXACIN750 MG PO; +MEPRON750 MG/5 M PO; +ONDANSETRON ODT8 MG PO; +PROCHLORPERAZIN10 MG PO; +PROVENTIL HFA6.7 GM INH; +URSO FORTE500 MG PO
== END 2022-05-07 12:38 | disposition home or self-care (01) ==
LOC: ED 10:22
DX: I82.611 Acute embolism and thrombosis of superficial veins of right upper extremity (principal); J45.909 Unspecified asthma, uncomplicated; M19.90 Unspecified osteoarthritis, unspecified site; G47.00 Insomnia, unspecified; Z79.899 Other long term (current) drug therapy
CPT/HCPCS: 36415; 80053; 85025; 85610; 85730; 93971; 99284-25

== ENCOUNTER 2022-07-28 14:24 | Observation (INO) | payer OTHER, MEDICARE ==
[~2022-07-28] VITALS: Ht 172.7 cm; Wt 98.5 kg
[2022-07-28] MEDS ORDERED: GNP ANTACID-AN1 EACH PO (15:10)
[2022-07-28] MEDS ORDERED: VITAMIN D325 MCG PO (15:10)
[2022-07-28] MEDS ORDERED: CLARITIN10 M2 PO (15:11)
[2022-07-28] MEDS ORDERED: K-TAB ER20 MEQ PO (15:12)
[2022-07-29] MEDS ORDERED: LO-DOSE ASPIRIN81 MG PO (13:12)
[2022-07-29] MEDS ORDERED: AMLODIPINE BES2.5 MG PO (13:13)
[2022-07-29] MEDS ORDERED: ATORVASTATIN CA10 MG PO (13:13)
--- NOTE | 2022-07-29 17:36 | EKG ---
[facility] [address] [facility] [place] [address] Signed Normal sinus rhythm Minimal voltage criteria for LVH, may be normal variant ( R in aVL ) Borderline ECG When compared with ECG of 10-MAY-2020 11:27, No significant change was found Confirmed by JOE CRAVEN MD ([id number]) on 07/29/2022 5:36:18 PM Electronically Signed By: JOE CRAVEN MD 07/29/22 1736 PATIENT NAME: TYSON JIANG Electrocardiogram DATE OF : 67 PHYSICIAN: JOE CRAVEN MD REPORT #: [id number] REPORT IS CONFIDENTIAL AND NOT TO BE RELEASED WITHOUT AUTHORIZATION
== END 2022-07-29 14:20 | disposition home or self-care (01) ==
LOC: ED 14:24 → MS 16:26
PROVIDERS: ADMIT Internal Medicine; ATTEND Internal Medicine
DX: I63.9 Cerebral infarction, unspecified (principal); I10 Essential (primary) hypertension; E78.2 Mixed hyperlipidemia; R73.03 Prediabetes; C90.01 Multiple myeloma in remission; Z86.718 Personal history of other venous thrombosis and embolism; J45.909 Unspecified asthma, uncomplicated; F41.9 Anxiety disorder, unspecified; R47.1 Dysarthria and anarthria; Z79.01 Long term (current) use of anticoagulants; R47.81 Slurred speech; F32.9 Major depressive disorder, single episode, unspecified; Z20.822 Contact with and (suspected) exposure to COVID-19
CPT/HCPCS: 36415; 70450; 70496; 70498; 71045; 80053; 80061; 83036; 84484; 85025; 85610; 85730; 87502; 93005; 93010; A9270; C9803; Q9967; U0003

== ENCOUNTER 2022-11-13 21:10 | Emergency (ER) | payer OTHER ==
[~2022-11-13] VITALS: Ht 172.7 cm; Wt 96.0 kg
[~2022-11-13 21:10] MED LIST changes: +AMLODIPINE BES2.5 MG PO; +ATORVASTATIN CA10 MG PO; +CLARITIN10 M2 PO; +GNP ANTACID-AN1 EACH PO; +LO-DOSE ASPIRIN81 MG PO; +VITAMIN D325 MCG PO
[2022-11-14] MEDS ORDERED: VALACYCLOVIR1000 MG PO (00:29)
== END 2022-11-14 00:45 | disposition home or self-care (01) ==
LOC: ED 21:10
DX: B02.9 Zoster without complications (principal); Z86.718 Personal history of other venous thrombosis and embolism; J45.909 Unspecified asthma, uncomplicated; Z79.82 Long term (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; Z79.899 Other long term (current) drug therapy
CPT/HCPCS: 36415; 80053; 85025; 85379; 99283

== ENCOUNTER 2022-11-26 17:17 | Emergency (ER) | payer OTHER, MEDICARE ==
[~2022-11-26] VITALS: Ht 172.7 cm; Wt 95.7 kg
[~2022-11-26 17:17] MED LIST changes: +VALACYCLOVIR1000 MG PO
--- OUTSIDE RECORDS SUMMARY | 2022-11-26 17:24 | XMS ---
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 Care History Medical/Surgical 05/11/2020 [facility] \T\middot;\T\nbsp; PATIENT IS A -RECEIVES SERVICES THROUGH [facility] IN [place]. \T\middot;\T\nbsp; Location: [address], [place] [address]- E.D. VISIT COUNT (12 MO.) 5 [facility] TOTAL 5 NOTE: Visits indicate total known visits. ED/UCC VISIT TRACKING (12 MO.) 11/26/2022 17:17 [facility] TYPE: Emergency COMPLAINT: - COLD SYMPTOMS 11/13/2022 21:11 [facility] TYPE: Emergency COMPLAINT: - SKIN PROBLEM DIAGNOSES: - Unspecified asthma, uncomplicated - Localized edema - Other fdc (current) drug therapy - detention (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 - Personal history of other venous thrombosis and embolism - Zoster without complications 07/28/2022 14:25 [facility] TYPE: Emergency COMPLAINT: - POSS STROKE 05/07/2022 10:23 [facility] TYPE: Emergency COMPLAINT: - RT ARM PAIN DIAGNOSES: - Unspecified osteoarthritis, unspecified site - Other medical terminologist (current) drug therapy - Unspecified asthma, uncomplicated - Acute embolism and thrombosis of superficial veins of right upper extremity - Insomnia, unspecified - Pain in right arm 03/06/2022 04:06 [facility] TYPE: Emergency COMPLAINT: - COLD SYMPTOMS DIAGNOSES: - Insomnia, unspecified - Other medical terminologist (current) drug therapy - detention (current) use of anticoagulants - Personal history of other venous thrombosis and embolism - Unspecified asthma, uncomplicated - Contact with and (suspected) exposure to COVID-19 - Personal history of antineoplastic chemotherapy - Cough, unspecified - Unspecified osteoarthritis, unspecified site - Pneumonia, unspecified organism INPATIENT VISIT TRACKING (12 MO.) 07/28/2022 16:[address] [facility] [place] TYPE: Observation COMPLAINT: - TIA VS STROKE DIAGNOSES: - Prediabetes - Essential (primary) hypertension - Contact with and (suspected) exposure to COVID-19 - Multiple myeloma in remission - Anxiety disorder, unspecified - Slurred speech - detention (current) use of anticoagulants - Unspecified asthma, uncomplicated - Mixed hyperlipidemia - Dysarthria and anarthria - Major depressive disorder, single episode, unspecified - Personal history of other venous thrombosis and embolism - Cerebral infarction, unspecified [email or web address]
[2022-11-26] MEDS ORDERED: DOXYCYCLINE HY100 MG PO (17:40)
[2022-11-26] MEDS ORDERED: PREDNISONE20 MG PO (17:40)
== END 2022-11-26 18:28 | disposition home or self-care (01) ==
LOC: ED 17:17
DX: J42 Unspecified chronic bronchitis (principal); J45.909 Unspecified asthma, uncomplicated; M19.90 Unspecified osteoarthritis, unspecified site; G47.00 Insomnia, unspecified; Z79.899 Other long term (current) drug therapy; Z79.82 Long term (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; Z20.822 Contact with and (suspected) exposure to COVID-19
CPT/HCPCS: 87502; 94664; 99283; C9803; U0003

== ENCOUNTER 2023-09-28 02:18 | Emergency (ER) | payer OTHER ==
[~2023-09-28] VITALS: Ht 172.7 cm; Wt 98.0 kg
[~2023-09-28 02:18] MED LIST changes: +DOXYCYCLINE HY100 MG PO
[2023-09-28] MEDS ORDERED: PERCOCET 5-3251 EACH PO (03:20)
[2023-09-28 03:42] VITALS: BP 161/104
== END 2023-09-28 03:42 | disposition home or self-care (01) ==
LOC: ED 02:18
DX: S39.012A Strain of muscle, fascia and tendon of lower back, initial encounter (principal); M89.9 Disorder of bone, unspecified; C90.00 Multiple myeloma not having achieved remission; X50.0XXA Overexertion from strenuous movement or load, initial encounter; Z79.82 Long term (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; Z79.899 Other long term (current) drug therapy
CPT/HCPCS: 72100; 96372; 99283-25; J2270

== ENCOUNTER 2023-10-18 15:45 | Emergency (ER) | payer OTHER, MEDICARE ==
[~2023-10-18] VITALS: Ht 172.7 cm; Wt 101.7 kg
[~2023-10-18 15:45] MED LIST changes: +PERCOCET 5-3251 EACH PO
--- OUTSIDE RECORDS SUMMARY | 2023-10-18 15:46 | XMS ---
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 - 2 Visits in 30 Days CARE PROVIDERS VAMSI MCDERMOTT [facility] 05/11/2020-Current PHONE: Unknown THOMAS GUTIERREZ Nurse Practitioner: Family 02/24/2019-Current PHONE: Unknown Zoila has no Care Guidelines for this patient. Care History Medical/Surgical 05/11/2020 [facility] \T\middot;\T\nbsp; PATIENT IS A -RECEIVES SERVICES THROUGH [facility] IN [place]. \T\middot;\T\nbsp; Location: [address], [place] [address]- E.D. VISIT COUNT (12 MO.) [address] [facility] TOTAL 5 NOTE: Visits indicate total known visits. 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 - Low back pain, unspecified - Multiple myeloma not having achieved remission - Other care home (current) drug therapy - Overexertion from strenuous movement or load, initial encounter - Strain of muscle, fascia and tendon of lower back, initial encounter 07/04/2023 20:04 [facility] TYPE: Emergency COMPLAINT: - LT LEG SWELLING DIAGNOSES: - Localized edema - [facility] (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 - Other care home (current) drug therapy - Other specified soft tissue disorders - Personal history of transient ischemic attack (TIA), and cerebral infarction without residual deficits 11/26/2022 17:17 [facility] TYPE: Emergency COMPLAINT: - COLD SYMPTOMS DIAGNOSES: - Contact with and (suspected) exposure to COVID-19 - Cough, unspecified - Insomnia, unspecified - moth exterminator (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 - Other care home (current) drug therapy - Unspecified asthma, uncomplicated - Unspecified chronic bronchitis - Unspecified osteoarthritis, unspecified site 11/13/2022 21:11 [facility] TYPE: Emergency COMPLAINT: - SKIN PROBLEM DIAGNOSES: - Localized edema - moth exterminator (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
[2023-10-18 16:50] VITALS: BP 129/78
== END 2023-10-18 16:50 | disposition home or self-care (01) ==
LOC: ED 15:45
DX: M54.9 Dorsalgia, unspecified (principal); M79.604 Pain in right leg; M79.651 Pain in right thigh; J45.909 Unspecified asthma, uncomplicated; Z79.01 Long term (current) use of anticoagulants; Z79.51 Long term (current) use of inhaled steroids; Z79.899 Other long term (current) drug therapy; Z86.718 Personal history of other venous thrombosis and embolism
CPT/HCPCS: 93971; 99283-25

== ENCOUNTER 2023-12-29 11:20 | Emergency (ER) | payer OTHER, MEDICARE ==
[~2023-12-29] VITALS: Ht 172.7 cm; Wt 99.0 kg
[~2023-12-29 11:20] MED LIST changes: +CODEINE SULFATE15 MG PO
[2023-12-29 12:39] VITALS: BP 141/90
== END 2023-12-29 12:43 | disposition home or self-care (01) ==
LOC: ED 11:20
DX: M79.605 Pain in left leg (principal); J45.909 Unspecified asthma, uncomplicated; Z86.718 Personal history of other venous thrombosis and embolism; Z79.01 Long term (current) use of anticoagulants; Z79.899 Other long term (current) drug therapy; Z79.82 Long term (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
CPT/HCPCS: 93971; 99283-25

== ENCOUNTER 2024-03-19 10:18 | Day surgery (SDC) | payer OTHER ==
[2024-03-17 12:48] VITALS: BP 136/94
[~2024-03-19] VITALS: Ht 172.7 cm; Wt 93.2 kg
[~2024-03-19 10:18] MED LIST changes: +IBLOOD GLUCOSE TEST STRIP 1 EA TEST VI PRN; +LACTATED RINGER'S 1,000 ML IV SCH; +LIDOCAINE HCL 1% 5 ML SDV INJ ONE; +MIDAZOLAM HCL 5 MG/5 ML VIAL IV PRN; +fentaNYL citrate 100 MCG/2 ML VIAL IV PRN
[2024-03-19 10:55] VITALS: BP 133/79
[2024-03-19 11:00] LABS: BASOPHILS 1.4 % (0-2); BASOPHILS, ABSOLUTE 0.1 %; EOSINOPHILS 2.7 % (0-6); EOSINOPHILS, ABSOLUTE 0.1; HEMATOCRIT 42.1 % (35.0-50.0); HEMOGLOBIN 14.2 g/dL (12.0-18.0); LYMPHOCYTES 24.8 % (24-44); LYMPHOCYTES, ABSOLUTE 1.2; MCH 31.1 (27-36); MCHC 33.6 g/dl (30-36); MCV 92.4 fl (81-99); MONOCYTES 4.8 % (0-12); MONOCYTES, ABSOLUTE 0.2; NEUTROPHILS 66.3 % (39-80); NEUTROPHILS, ABSOLUTE 3.3; PLATELET COUNT 130 K/uL (140-440); RBC 4.56 M/ul (4.3-5.7); RDW 15.1 (10.5-15.0)
[2024-03-19] MEDS ORDERED: LIDOCAINE HCL 2% 5 ML SDV ONE (11:39)
[2024-03-19] MEDS ORDERED: propofoL 200 MG/20 ML VIAL ONE (11:40)
--- NOTE | 2024-03-19 12:41 | NUR ---
03/19/24 1241 Catia Mancilla 1236-PATIENT ARRIVED TO PACU ON 6L MASK RR EVEN. PATIENT NONAROUSABLE LAYING PRONE ARMS UP BEHIND PILLOW. BANDAIDS TO LOWER BACK CDI X2. SINUS RHYTHM. IVF INFUSING.
[2024-03-19 13:11] VITALS: BP 143/85
--- NOTE | 2024-03-19 17:28 | EKG ---
[facility] [address] [facility] [place] [address] Signed Normal sinus rhythm Incomplete right bundle branch block Moderate voltage criteria for LVH, may be normal variant Borderline ECG When compared with ECG of 28-JUL-2022 14:44, No significant change was found Confirmed by TIMOTHY CARNEY MD ([id number]) on 03/19/2024 5:28:41 PM Electronically Signed By: TIMOTHY CARNEY 03/19/24 1728 PATIENT NAME: DEIDRETYSON NORBERTO Electrocardiogram DATE OF : 67 PHYSICIAN: TIMOTHY CARNEY REPORT #: [id number] REPORT IS CONFIDENTIAL AND NOT TO BE RELEASED WITHOUT AUTHORIZATION
[2024-03-22 07:09] LABS: ALPHA 1 GLOBULIN 0.36 g/dL (0.19-0.46); ALPHA 2 GLOBULIN 0.68 g/dL (0.48-1.05); BETA GLOBULIN 0.75 g/dL (0.48-1.10); GAMMA 1.62 g/dL (0.62-1.51); IMMUNOFIXATION REFLEX IFE Done (()); TOTAL PROTEIN,SERUM 7.6 g/dL (6.3-8.2)
[2024-03-22 07:11] LABS: IMMUNOGLOBULIN A 46 mg/dL (68-408); IMMUNOGLOBULIN G 1880 mg/dL (768-1632); IMMUNOGLOBULIN M 23 mg/dL (35-263)
--- NOTE | 2024-03-25 13:09 | PATH ---
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 C90.00 (multiple myeloma not having achieved remission) DIAGNOSIS SUMMARY: Peripheral blood - Mild thrombocytopenia. - No circulating blasts or plasma cells are identified. Bone marrow biopsy and aspiration: - Normocellular marrow, 40%, with 1% blasts. - Nodules and aggregates of plasma cells occupying at least 20% of marrow cellularity. - The plasma cell population is kappa restricted consistent with residual myeloma. - Trilineage hematopoiesis with no significant dyspoiesis. - Congo Red stain is negative for amyloid. - Normal marrow iron stores. - See diagnostic comment. DIAGNOSTIC COMMENT: The biopsy is short. The clot section has a single very small spicule. Estimation of the plasma cell cellularity is difficult as nodules of plasma cells are present at the edge of the biopsy measuring 0.5 to 1.0 mm in dimensions. The plasma cell population may be higher than 20%. The findings are consistent with residual myeloma in the correct clinical setting. JLP HISTORICAL SUMMARY: See above clinical history. This bone marrow is to evaluate for residual myeloma. PERIPHERAL BLOOD: PATIENT NAME: TYSON HOLLEY PATHOLOGY DATE OF : 67 REPORT #: [id number] PHYSICIAN: RAJWINDER PATHOLOGY PCP: VAMSI MCDERMOTT MD REPORT IS CONFIDENTIAL AND NOT TO BE RELEASED WITHOUT AUTHORIZATION [facility] [address] [facility] [place], [place] [address] Signed HEMOGRAM (03/19/2024): WBC 4.9 K/ul, RBC 4.56 M/ul, HGB 14.2 g/dl, HCT 42.1%, MCV 92.4 fl, MCH 31.1 pg, MCHC 33.6 g/dl, RDW 15.1%, PLT 130 K/ul, MPV 8.7 fl. AUTOMATED DIFFERENTIAL COUNT: Neutrophils 66.3%, lymphocytes 24.6%, monocytes 4.8%, eosinophils 2.7%, basophils 1.4%. The red blood cells are normocytic and normochromic with minimal aniso-poikilocytosis. The neutrophils are unremarkable. Lymphocytes are composed of small mature appearing forms. Platelets appear minimally decreased in number with no platelet clumping or RBC microangiopathic effect identified. No blasts are identified. BONE MARROW: ASPIRATE SMEARS/TOUCH IMPRINT: The aspirate smears are poorly stained and are suboptimal for evaluation. Scattered erythroid precursors show adequate maturation with essentially normal morphology. The myeloid precursors show full maturation with unremarkable morphology. There is no increase in blasts. Megakaryocytes are identified with a normal morphology. Plasma cells are focally noted. BONE MARROW DIFFERENTIAL COUNT (300 cells): Blasts 1%. promyelocytes 1%, myelocytes 4%, metamyelocytes/bands/segs 34%, erythroid precursors 24%, lymphocytes 16%, monocytes 2%, eosinophils 3%, plasma cells 15%. BONE MARROW CORE BIOPSY/ASPIRATE CLOT/CELL BLOCK: The aspirate clot section is mostly blood with very scant marrow spicules and is inadequate for evaluation. The core biopsy is short but adequate for evaluation. The core biopsy demonstrates unremarkable trabecular bone. The cellularity is challenging to estimate due to biopsy artifact. The best estimate is 40%. The erythroid precursors are within normal limits with essentially unremarkable maturation. The myeloid precursors are unremarkable with no significant dyspoiesis. Blasts are not increased. Plasma cells are increased with a normal morphology. Megakaryocytes appear normal in number and in morphology. No granulomas, atypical lymphoid aggregates or foreign malignant cells are detected. SPECIAL STAINS (with adequate controls): - iron (aspirate smear): Normal marrow iron stores are noted by Prussian Blue stain. No ring sideroblasts are identified. - iron (cell block): Negative for iron in a limited specimen. - Congo Red for amyloid (block A1): Negative IMMUNOHISTOCHEMISTRY STAINS (performed on block A1 with adequate controls). - CD138: 20% - DAINA [place] and Lambda: [place] light chain restriction. PATIENT NAME: TYSON HOLLEY PATHOLOGY DATE OF : 67 REPORT #: [id number] PHYSICIAN: RAJWINDER PATHOLOGY PCP: VAMSI MCDERMOTT MD REPORT IS CONFIDENTIAL AND NOT TO BE RELEASED WITHOUT AUTHORIZATION [facility] [address] [place], [place] [address] Signed FLOW CYTOMETRY: Bone marrow, flow cytometry: - Scant (0.04%) population of plasma cells with cytoplasmic kappa light chain restriction suspicious for minimal residual plasma cell neoplasm. - See Comment. COMMENT: 0.04% of all analyzed cells are plasma cells with cytoplasmic kappa light chain restriction suspicious for minimal residual plasma cell neoplasm. The patient's history of a IgG kappa myeloma, status post SCT is noted. Correlation with bone marrow findings and ancillary testing is required. FLOW CYTOMETRY ANALYSIS: FLOW DIFFERENTIAL (% Total CD45 vs. SSC gating): Myeloid 80%; Lymphoid 7%; Monocyte 3%; Dim CD45/Blast: 1.0%. Cell Count: 1.1 x 10*4/uL. POPULATION ANALYSIS: BLASTS: Analysis of the dim CD45 gate demonstrates 1.0% myeloblasts by CD34/CD117 and 1.3% hematogones. LYMPHOID CELLS: The lymphocyte gate comprises 7% of total events and includes 56% T-cells with a CD4:CD8 ratio of 0.6:1 and normal higgins T-cell antigen expression. 28% of lymphocytes are polyclonal B-cells with a kappa:lambda ratio of 1.2:1. The remainders are NK-cells. MYELOID CELLS: The myeloid population comprises 80% of the total events. No aberrant immunophenotypic expression is detected. MONOCYTES: The monocyte population comprises 3% of the total events. Monocytes are not increased. No aberrant immunophenotypic expression is detected. PLASMA CELLS: A clinical history of multiple myeloma is noted. For this reason, select additional antibodies are run to further characterize the plasma cells. 0.04% ckappa-restricted plasma cells are detected (n=37) expressing CD45 DIM-NEG, CD38 BR, CD138 DIM, CD20 DIM (partial), CD56 MOD, and cKAPPA BR while negative for CD19 and CD117. Initial Antibodies Used: KAPPA, LAMBDA, CD20, CD10, CD19, CD23, CD38, CD16, CD56, CD8, CD5, CD2, CD4, CD7, CD3, CD14, CD33, CD13, HLADR, CD34, CD117, CD15, CD45 Additional Antibodies (necessary for further plasma cell analysis): ckappa, clambda, CD138. Total Antibodies Used: 26. JNB FINAL DIAGNOSIS PERFORMED BY: Timi Arellano MD, Mar 21 2024 2:56PM PATIENT NAME: TYSON HOLLEY PATHOLOGY DATE OF : 67 REPORT #: [id number] PHYSICIAN: RAJWINDER PATHOLOGY PCP: VAMSI MCDERMOTT MD REPORT IS CONFIDENTIAL AND NOT TO BE RELEASED WITHOUT AUTHORIZATION [facility] [address] [place], [place] [address] Signed CYTOGENETICS: Chromosome analysis is pending. FISH ANALYSIS: A FISH panel for myeloma is pending. FLOW CYTOMETRY MRD ANALYSIS The MRD flow cytometry study is pending. GROSS DESCRIPTION: Two specimens are received in two containers. A. The specimen, labeled and designated "Holley, bone marrow core biopsy," is received in formalin and consists of a red-galvan core of bone (0.8 cm in length by up to 0.2 cm in diameter). The specimen is submitted entirely in cassette (A1) following decalcification in Immunocal. B. The specimen, labeled and designated "Holley, bone marrow clot biopsy," is received in formalin and consists of a portion of red-brown clot-like material (2.0 x 0.9 x 0.4 cm in aggregate). The specimen is submitted entirely in cassette (B1). VB (under the direct supervision of a pathologist) The Gross Description was prepared using a voice recognition system. The report was reviewed for accuracy; however, sound-alike word errors, addition and/or deletions may occur. If there is any question about this report, please contact Client Services. ADDITIONAL NOTES: Immunohistochemical and/or in situ hybridization studies if performed in this case included appropriate positive controls that reacted as expected. This test was developed and its performance characteristics determined by [facility]. It has not been cleared or approved by the U.S. Food and Drug Administration. The FDA has determined that such clearance or approval is not necessary. This test is used for clinical purposes. It should not be regarded as investigational or for research. [facility] is certified under the Clinical Laboratory Improvement Amendments of 1988 (CLIA) as qualified to perform high complexity clinical laboratory testing. In this case, certain antibodies were performed by both immunohistochemistry and flow cytometry analysis because flow cytometry analysis did not fully explain all the light microscopic findings. Immunohistochemistry aided in the analysis. Both methods are deemed medically necessary in this case. PATIENT NAME: TYSON HOLLEY PATHOLOGY DATE OF : 67 REPORT #: [id number] PHYSICIAN: RAJWINDER MURPHY PCP: VAMSI MCDERMOTT MD REPORT IS CONFIDENTIAL AND NOT TO BE RELEASED WITHOUT AUTHORIZATION [facility] [address] [place] [id number] Signed This test was developed and its performance characteristics determined by [facility]. It has not been cleared or approved by the US Food and Drug Administration. The FDA does not require this test to go through premarket FDA review. This test is used for clinical purposes. It should not be regarded as investigational or for research. This laboratory is certified under the Clinical Laboratory Improvement Amendments (CLIA) as qualified to perform high complexity clinical laboratory testing. PERFORMING LABORATORY: The technical preparation was performed by [facility], [address] [address] (CLIA#: [id number]). Professional interpretation was performed by [facility] - [facility], [address] [place] [phone] (CLIA#: [id number]). Technical component was performed by [facility], [address] [place] [address] (CLIA# [id number]). Professional interpretation was performed by [facility] - [facility], [address] [place] [phone] (CLIA#: [id number]). IMAGES: [id number]: [id number]: [id number] REASON FOR ADDENDUM: To report results of additional testing. Bone marrow, flow cytometry analysis: DIAGNOSIS: MONOCLONAL PLASMA CELL POPULATION IS DETECTED. Comments: Total plasma cells comprise 1.72% of total cells. Flow cytometric evaluation for myeloma-MRD detects a monoclonal plasma cell population: VS38 rachel, CD138 mod, BCMA mod, ckappa rachel, CD19 neg, CD20 neg, CD117 neg, CD56 variable, CD27 dim, and CD81 dim partial. If the patient has a prior confirmed history of plasma cell myeloma, then the findings would be consistent with residual disease. Flow cytometry typically underestimates the percentage of plasma cells due to increased fragility of the cells and loss during processing. Correlation with morphology, clinical history, and other diagnostic information is recommended. This myeloma-MRD assay is intended for patients with previously diagnosed and PATIENT NAME: TYSON HOLLEY PATHOLOGY DATE OF : 67 REPORT #: [id number] PHYSICIAN: RAJWINDER PATHOLOGY PCP: VAMSI MCDERMOTT MD REPORT IS CONFIDENTIAL AND NOT TO BE RELEASED WITHOUT AUTHORIZATION [facility] [address] [place], [place] [address] Signed treated plasma cell myeloma. The lower limit of detection for this assay is validated at 0.01%. Due to the targeted nature of this assay, the presence of non-plasma cell hematopoietic neoplasms cannot be excluded. Flow Differential (%) and Population Analysis: Plasma Cells: 1.72% Specimen Viability: 89.1 % Cell Yield: 17.49 Million Markers Performed: CD19, CD20, CD27, CD28, CD45, CD56, CD81, CD117, CD138, CD200, CD269 (BCMA), cKappa, cLambda, VS38c (14 Markers ) CPT Codes: 33568p7, 31304m56, 13714f5 The Accessioning Component, Technical Component Processing and Analysis of this test was completed at [facility] [address] / [address] / [phone] / CLIA # [id number] / Tankage Supervisor(s): Vadim Amin M.D. The Professional Component of this test was completed at [facility], [address] [place] [address], [address], [place] / [address] / [phone] / CLIA # [id number] / Tankage Supervisor(s): Ila Mohamud M.D. (Accession/CaseNo: [id number]) This test was developed and its performance characteristics determined by the performing laboratory. It has not been cleared or approved by the U.S. Food and Drug Administration. The FDA has determined that such clearance or approval is not necessary. This test is used for clinical purposes. It should not be regarded as investigational or for research. This laboratory is certified under the Clinical Laboratory Improvement Amendments of 1988 (CLIA) as qualified to perform high complexity clinical testing. Images that may be included within this report are customer solutions representative of the patient but not all testing in its entirety and should not be used to render a result. The CPT codes provided with our test descriptions are based on AMA guidelines and are for informational purposes only. Correct CPT coding is the sole responsibility of the billing democrat. Please direct any questions regarding coding to the payer being billed. PATIENT NAME: TYSON HOLLEY PATHOLOGY DATE OF : 67 REPORT #: [id number] PHYSICIAN: RAJWINDER PATHOLOGY PCP: VAMSI MCDERMOTT MD REPORT IS CONFIDENTIAL AND NOT TO BE RELEASED WITHOUT AUTHORIZATION [facility] [address] [place], [place] [address] Signed Diagnostician: Timi Arellano MD Pathologist Electronically Signed 03/25/2024 Copies: ~ PATIENT NAME: TYSON HOLLEY PATHOLOGY DATE OF : 67 REPORT #: [id number] PHYSICIAN: RAJWINDER MURPHY PCP: VAMSI MCDERMOTT MD REPORT IS CONFIDENTIAL AND NOT TO BE RELEASED WITHOUT AUTHORIZATION
== END 2024-03-19 13:30 | disposition home or self-care (01) ==
LOC: DS 10:18 → OPS 10:18 → DS 12:00 → OPS 13:30
PROVIDERS: ATTEND Specialist
PROC: 07DT3ZX Extraction of Bone Marrow, Percutaneous Approach, Diagnostic (ICD-10-PCS; 2024-03-19)
PROC: 079T3ZX Drainage of Bone Marrow, Percutaneous Approach, Diagnostic (ICD-10-PCS; principal; 2024-03-19 12:00)
DX: C90.02 Multiple myeloma in relapse (principal); D69.6 Thrombocytopenia, unspecified; R05.3 Chronic cough; E87.6 Hypokalemia; D80.1 Nonfamilial hypogammaglobulinemia; K58.9 Irritable bowel syndrome, unspecified
CPT/HCPCS: 01112; 36415; 82570; 84156; 85025; 93005; 93010; J2001; J2704; J7121

== ENCOUNTER 2024-08-19 14:12 | Emergency (ER) | payer OTHER ==
[~2024-08-19] VITALS: Ht 172.7 cm; Wt 91.0 kg
[~2024-08-19 14:12] MED LIST changes: +ABILIFY20 MG PO; +DEXAMETHASONE4 MG; +EFFEXOR XR150 MG PO; +FLUTICASONE-SAL12 G1 INH; +HYDROXYZINE HCL25 MG PO; -IBLOOD GLUCOSE TEST STRIP 1 EA TEST VI PRN; +KLOR-CON20 MEQ PO; -LACTATED RINGER'S 1,000 ML IV SCH; -LIDOCAINE HCL 1% 5 ML SDV INJ ONE; -MIDAZOLAM HCL 5 MG/5 ML VIAL IV PRN; +REVLIMID25 MG PO; -fentaNYL citrate 100 MCG/2 ML VIAL IV PRN
[2024-08-19 14:34] LABS: EOSINOPHILS 1.8 % (0-6); HEMATOCRIT 37.2 % (35.0-50.0); HEMOGLOBIN 12.6 g/dL (12.0-18.0); LYMPHOCYTES 16.2 % (24-44); MCH 32.3 (27-36); MCV 95.2 fl (81-99); PLATELET COUNT 128 K/uL (140-440); RDW 17.4 (10.5-15.0)
[2024-08-19 14:51] LABS: ALBUMIN 3.5 g/dL (3.4-5.0); ALBUMIN/GLOBULIN RATIO 1.35 (1.1-2.4); ANION GAP 10.3 (7-21); BILIRUBIN, TOTAL 1.5 ng/dL (0.2-1.0); BUN/CREATININE RATIO 13.19 (6.0-28.6); CALCIUM 9.3 mg/dL (8.5-10.1); CREATININE, SERUM 1.44 mg/dL (0.70-1.30); POTASSIUM 3.3 mmol/L (3.5-5.1); PROTEIN, TOTAL 6.1 g/dL (6.4-8.2)
[2024-08-19 17:18] VITALS: BP 122/76
== END 2024-08-19 17:23 | disposition home or self-care (01) ==
LOC: ED 14:12
PROVIDERS: Emergency Medicine
DX: R53.1 Weakness (principal); C90.00 Multiple myeloma not having achieved remission; J45.909 Unspecified asthma, uncomplicated; K58.9 Irritable bowel syndrome, unspecified; Z86.73 Personal history of transient ischemic attack (TIA), and cerebral infarction without residual deficits; Z86.718 Personal history of other venous thrombosis and embolism; Z79.82 Long term (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; Z79.899 Other long term (current) drug therapy
CPT/HCPCS: 36415; 70450; 80053; 85025; 99284-25